=== PATIENT | male | born 1965 | race Caucasian/White ===

== ENCOUNTER 2021-08-23 10:22 | Emergency (ER) | payer BC, SELFPAY ==
[~2021-08-23] VITALS: Ht 182.9 cm; Wt 104.3 kg
[2021-08-23 10:32] VITALS: BP_SYST 145
[2021-08-23] MEDS ORDERED: ASPIRIN 81 MG TAB.CHEW PO ONE (12:00)
[2021-08-23 12:36] LABS: BARBITURATE, URINE NEGATIVE (NEG <=200); BENZODIAZEPINE, URINE NEGATIVE (NEG <=150); CANNABINOID, URINE NEGATIVE (NEG <=50); COCAINE, URINE NEGATIVE (NEG <=150); METHAMPHETAMINES SCREEN,URINE POSITIVE (NEG <=500); OPIATE, URINE NEGATIVE (NEG <=100); PHENCYCLIDINE SCREEN,URINE NEGATIVE (NEG <=25); URINE AMPHETAMINE POSITIVE (NEG <=500); URINE METHADONE NEGATIVE (NEG <=200); URINE OXYCODONE SCREEN NEGATIVE (NEG <=100)
[2021-08-23 12:37] LABS: UR TRICYCLIC ANTIDEPRESSANTS NEGATIVE (NEG <=300); URINE PROPOXYPHENE SCREEN NEGATIVE (NEG <=300)
[2021-08-23 12:43] LABS: BASOPHILS # (AUTO) 0.1 K/uL (0.0-0.2); BASOPHILS % (AUTO) 1.5 % (0.0-2.0); EOSINOPHILS # (AUTO) 0.1 K/uL (0.0-0.4); HEMOGLOBIN 13.3 g/dL (14.0-18.0); LYMPHOCYTES # (AUTO) 2.9 K/uL (1.0-5.5); LYMPHOCYTES % (AUTO) 42.9 % (20.5-51.5); MEAN CORPUSCULAR HEMOGLOBIN 31 pg (27-31); MEAN CORPUSCULAR HGB CONC 33 % (32-36); MEAN CORPUSCULAR VOLUME 93 fL (79.0-98.0); MONOCYTES # (AUTO) 0.6 K/uL (0.0-1.0); MONOCYTES % (AUTO) 9.1 % (1.7-9.3); NEUTROPHILS % (AUTO) 44.5 % (40.0-70.0); RED BLOOD CELL COUNT(AUTO) 4.32 MIL/uL (4.2-6.2); RED CELL DISTRIBUTION WIDTH 14.6 % (9.0-15.0)
[2021-08-23] MEDS ORDERED: NITROGLYCERIN 0.4 MG TAB.SUBL SL ONE (12:45)
[2021-08-23 12:47] LABS: WHITE BLOOD COUNT (AUTO) 6.8 K/uL (4.8-10.8)
[2021-08-23 13:05] LABS: ANION GAP 6 (5-15); CALCIUM 8.2 mg/dL (8.4-11.0); CHLORIDE 100 mmol/L (98-107); CREATININE 0.73 mg/dL (0.55-1.30); GLUCOSE 148 mg/dL (70-99); POTASSIUM 4.2 mmol/L (3.5-5.1); SODIUM SERUM 134 mmol/L (136-145); UREA NITROGEN, BLOOD 19 mg/dL (8-21)
[2021-08-23 13:06] LABS: GFR AFRICAN AMERICAN 143 mL/min (>90)
[2021-08-23 13:13] LABS: ALANINE AMINOTRANSFERASE 289 U/L (12-78); ALBUMIN 3.1 g/dL (3.4-4.8); ASPARTATE AMINOTRANSFERASE 190 U/L (10-37); TOTAL BILIRUBIN 0.5 mg/dL (0.0-1.0)
[2021-08-23 13:20] LABS: ALCOHOL, BLOOD < 3 mg/dL (<10)
[2021-08-23 13:21] LABS: PLATELET COUNT (AUTO) 95 K/uL (130-430)
[2021-08-23] MEDS ORDERED: NITROGLYCERIN 1 INCH (GM) OINT. TP ONE (14:00)
[2021-08-23] MEDS ORDERED: HYDROcodone/ACETAMIN 10-325 MG TAB PO ONE (15:00)
[2021-08-23] MEDS ORDERED: KETOROLAC TROMETHAMINE 60 MG/2 ML VIAL IM ONE (15:00)
[2021-08-23] MEDS ORDERED: HYDR-3917 PO (16:26)
[2021-08-23] MEDS ORDERED: IBUP-1971 PO (16:26)
[2021-08-23 16:57] VITALS: BP_SYST 128
--- NOTE | 2021-08-23 16:58 | NUR ---
Patient given written and verbal discharge instructions and verbalizes understanding. DAVID MATOS MD discussed with patient the results and treatment provided. Patient in stable condition. ID arm band removed. IV catheter removed intact and dressing applied, no active bleeding. Rx of HYDROCODONE, MOTRIN given. Patient educated on pain management and to follow up with PMD. Pain Scale 0. Opportunity for questions provided and answered. Medication side effect fact sheet provided.
== END 2021-08-23 16:58 | disposition home or self-care (01) ==
LOC: SED 10:22
DX: S13.4XXA Sprain of ligaments of cervical spine, initial encounter (principal); S43.401A Unspecified sprain of right shoulder joint, initial encounter; S09.8XXA Other specified injuries of head, initial encounter; W18.39XA Other fall on same level, initial encounter; Y93.89 Activity, other specified; Y92.89 Other specified places as the place of occurrence of the external cause; Y99.8 Other external cause status
CPT/HCPCS: 36415; 70450; 71045; 72072; 72125; 73560; 76376; 80053; 80307; 83880; 84484; 85025; 86886; 86900; 86901; 96372; 99285; G0482; J1885

== ENCOUNTER 2022-03-14 11:29 | Emergency (ER) | payer BC, MEDICAID ==
[~2022-03-14] VITALS: Ht 182.9 cm; Wt 102.1 kg
[~2022-03-14 11:29] MED LIST: HYDR-3917 PO; IBUP-1971 PO
[2022-03-14 11:30] VITALS: BP_SYST 124
--- NOTE | 2022-03-14 12:09 | NUR ---
Patient to ER bed 3 to gown for evaluation. Side rails up. Report given to SHAE HUERTA .
--- NOTE | 2022-03-14 12:10 | NUR ---
RECEIVED PT FROM DEANNA ANGELES. PT HAS C/O BODY ACHES, VSS. NORMOTHERMIC. PT IS AAOX4. RESP E/U. ON R/A. NO COUGH OR SOB NOTED. DENIES N/V/D/C. ABDOMEN SOFT, NONTENDER, NONDISTENDED. BOWEL SOUNDS ACTIVE. SKIN CDI, DISTAL PULSES NORMAL, NO EDEMA. IV CATH 20 TO RFA ESTABLISHED. SIDERAILS UP X2.
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
--- NOTE | 2022-03-14 12:15 | NUR ---
DAVID CARBAJAL at bedside examining patient.
[2022-03-14 13:44] LABS: EOSINOPHILS # (AUTO) 0.3 K/uL (0.0-0.4); WHITE BLOOD COUNT (AUTO) 3.8 K/uL (4.8-10.8)
[2022-03-14 13:55] LABS: BASOPHILS # (AUTO) 0.1 K/uL (0.0-0.2); BASOPHILS % (AUTO) 2.2 % (0.0-2.0); EOSINOPHILS % (AUTO) 7.3 % (0.0-4.0); HEMATOCRIT 34.8 % (36-54); HEMOGLOBIN 11.9 g/dL (14.0-18.0); LYMPHOCYTES # (AUTO) 1.8 K/uL (1.0-5.5); LYMPHOCYTES % (AUTO) 49.2 % (20.5-51.5); MEAN CORPUSCULAR HEMOGLOBIN 32 pg (27-31); MEAN CORPUSCULAR HGB CONC 34 % (32-36); MEAN CORPUSCULAR VOLUME 95 fL (79.0-98.0); MONOCYTES # (AUTO) 0.3 K/uL (0.0-1.0); MONOCYTES % (AUTO) 8.6 % (1.7-9.3); NEUTROPHILS # (AUTO) 1.2 K/uL (1.8-7.7); NEUTROPHILS % (AUTO) 32.7 % (40.0-70.0); PLATELET COUNT (AUTO) 104 K/uL (130-430); RED BLOOD CELL COUNT(AUTO) 3.67 MIL/uL (4.2-6.2); RED CELL DISTRIBUTION WIDTH 14.9 % (9.0-15.0)
[2022-03-14 14:07] LABS: BILIRUBIN,URINE NEGATIVE (NEGATIVE); CLARITY/URINE CLEAR (CLEAR); COLOR,URINE YELLOW (YELLOW); GLUCOSE,URINE NEGATIVE (NEGATIVE); KETONES,URINE NEGATIVE (NEGATIVE); LEUKOCYTE ESTERASE ,URINE NEGATIVE (NEGATIVE); NITRITE, URINE NEGATIVE (NEGATIVE); PROTEIN URINE NEGATIVE (NEGATIVE)
[2022-03-14 14:08] LABS: CALCIUM 8.1 mg/dL (8.4-11.0); CREATININE 0.9 mg/dL (0.55-1.30); POTASSIUM 3.9 mmol/L (3.5-5.1)
[2022-03-14 14:13] LABS: BLOOD, URINE TRACE (NEGATIVE)
[2022-03-14 14:14] LABS: ALBUMIN 2.8 g/dL (3.4-4.8); TOTAL BILIRUBIN 0.3 mg/dL (0.0-1.0)
--- NOTE | 2022-03-14 14:14 | NUR ---
PT TAKEN FOR CT SCAN.
[2022-03-14 14:21] LABS: BACTERIA,URINE RARE /HPF (None Seen); MUCUS,URINE 1+ /LPF (None Seen); RBC,URINE 0-3 /HPF (0-3); WBC,URINE 0-3 /HPF (0-3)
[2022-03-14 14:21] LABS: INR 1.2 (0.80-1.20); PROTHROMBIN TIME 12.1 SECS (9.5-12.5)
[2022-03-14] MEDS ORDERED: LIDOCAINE/EPI 2% 1:100000 20 ML VIAL INJ ONE (16:15)
--- NOTE | 2022-03-14 18:55 | NUR ---
Patient given written and verbal discharge instructions and verbalizes understanding. ER Dr. Jose THOMAS discussed with patient the results and treatment provided. Patient in stable condition. ID arm band removed. Patient educated on pain management and to follow up with PMD. Pain Scale 4/10. Opportunity for questions provided and answered. Medication side effect fact sheet provided.
[2022-03-14 19:30] VITALS: BP_SYST 124
--- NOTE | 2022-03-14 19:51 | NUR ---
TAMMY RN PT STABLE FOR D/C TO HOME. TO LOBBY VIA OWN W/C TO WAIT FOR [employer]. [id number] SAO2-99% R/A. IV D/C'D WITH CATH INTACT AND PRESSURE DRESSING APPLIED.
== END 2022-03-14 19:48 | disposition home or self-care (01) ==
LOC: SED 11:29
DX: R07.9 Chest pain, unspecified (principal); E11.9 Type 2 diabetes mellitus without complications; I10 Essential (primary) hypertension; Z88.8 Allergy status to other drugs, medicaments and biological substances; Z79.899 Other long term (current) drug therapy
CPT/HCPCS: 36415; 71045; 80053; 81000; 83605; 84484; 85025; 85610-TC; 85730-TC; 87040; 87086; 93005; 99285

== ENCOUNTER 2022-12-15 17:14 | Inpatient (IN) | payer MEDICAID ==
[~2022-12-15] VITALS: Ht 167.6 cm; Wt 77.1 kg
[2022-12-15 17:32] VITALS: BP_SYST 144
[2022-12-15] MEDS ORDERED: iohexoL 350 mgI/mL, 100 ML INFUS..BTL IV ONE (17:36)
[2022-12-15] MEDS ORDERED: ASPIRIN 81 MG TAB.CHEW PO ONE (18:00)
[2022-12-15 18:25] LABS: BASOPHILS # (AUTO) 0.1 K/uL (0.0-0.2); BASOPHILS % (AUTO) 2.2 % (0.0-2.0); EOSINOPHILS # (AUTO) 0.1 K/uL (0.0-0.4); EOSINOPHILS % (AUTO) 2.2 % (0.0-4.0); HEMATOCRIT 38.2 % (36-54); HEMOGLOBIN 13.1 g/dL (14.0-18.0); LYMPHOCYTES # (AUTO) 1.8 K/uL (1.0-5.5); LYMPHOCYTES % (AUTO) 29.5 % (20.5-51.5); MEAN CORPUSCULAR HEMOGLOBIN 32 pg (27-31); MEAN CORPUSCULAR HGB CONC 34 % (32-36); MEAN CORPUSCULAR VOLUME 95 fL (79.0-98.0); MONOCYTES # (AUTO) 0.6 K/uL (0.0-1.0); MONOCYTES % (AUTO) 9.9 % (1.7-9.3); NEUTROPHILS # (AUTO) 3.4 K/uL (1.8-7.7); NEUTROPHILS % (AUTO) 56.2 % (40.0-70.0); PLATELET COUNT (AUTO) 128 K/uL (130-430); RED BLOOD CELL COUNT(AUTO) 4.04 MIL/uL (4.2-6.2); RED CELL DISTRIBUTION WIDTH 14.5 % (9.0-15.0); WHITE BLOOD COUNT (AUTO) 6.1 K/uL (4.8-10.8)
[2022-12-15 18:41] LABS: ANION GAP 7 (5-15); CALCIUM 7.6 mg/dL (8.4-11.0); CHLORIDE 97 mmol/L (98-107); CREATININE 0.77 mg/dL (0.55-1.30); GFR AFRICAN AMERICAN 134 mL/min (>90); GLUCOSE 151 mg/dL (70-99); UREA NITROGEN, BLOOD 10 mg/dL (8-21)
[2022-12-15 18:54] LABS: ALANINE AMINOTRANSFERASE 195 U/L (12-78); ALBUMIN 2.8 g/dL (3.4-4.8); ASPARTATE AMINOTRANSFERASE 180 U/L (10-37); TOTAL BILIRUBIN 0.5 mg/dL (0.0-1.0)
[2022-12-15] MEDS ORDERED: ASPIRIN 325 MG TABLET PO ONE (20:30)
[2022-12-15] MEDS ORDERED: MAGNESIUM SULFATE 50 ML IV PRN (21:30)
[2022-12-15] MEDS ORDERED: DEXTROSE 50% JECT 50 ML DISP.SYRIN IVP PRN (21:30)
[2022-12-15] MEDS ORDERED: MORPHINE 2 MG/ML INJ. SYRINGE IVP PRN ×2 (21:30)
[2022-12-15] MEDS ORDERED: MUPIROCIN 2% TOPICAL OINTMENT 22 GM NS PRN (21:30)
[2022-12-15] MEDS ORDERED: IBUPROFEN 800 MG TABLET PO PRN (21:30)
[2022-12-15] MEDS ORDERED: ONDANSETRON HCL 4 MG/2 ML VIAL IVP PRN (21:30)
[2022-12-15] MEDS ORDERED: ZOLPIDEM TARTRATE 5 MG TABLET PO PRN (21:30)
[2022-12-15] MEDS ORDERED: POTASSIUM CHLORIDE 20 MEQ TAB.PRT.SR PO PRN (21:30)
[2022-12-15] MEDS ORDERED: DOCUSATE SODIUM 100 MG CAPSULE PO PRN (21:30)
[2022-12-15] MEDS ORDERED: ACETAMINOPHEN 325 MG TABLET PO PRN (21:30)
[2022-12-15] MEDS: LORazepam 2 MG/ML VIAL IVP PRN (21:57)
[2022-12-16] VITALS (8 sets, daily range): BP systolic 96–127
[2022-12-16 05:22] LABS: CALCIUM 7.6 mg/dL (8.4-11.0); CREATININE 0.83 mg/dL (0.55-1.30)
[2022-12-16 05:31] LABS: BASOPHILS # (AUTO) 0.1 K/uL (0.0-0.2); BASOPHILS % (AUTO) 1.3 % (0.0-2.0); EOSINOPHILS # (AUTO) 0.2 K/uL (0.0-0.4); EOSINOPHILS % (AUTO) 4.5 % (0.0-4.0); HEMATOCRIT 37.4 % (36-54); HEMOGLOBIN 12.7 g/dL (14.0-18.0); LYMPHOCYTES # (AUTO) 1.8 K/uL (1.0-5.5); LYMPHOCYTES % (AUTO) 35.6 % (20.5-51.5); MEAN CORPUSCULAR HEMOGLOBIN 32 pg (27-31); MEAN CORPUSCULAR HGB CONC 34 % (32-36); MEAN CORPUSCULAR VOLUME 94 fL (79.0-98.0); MONOCYTES # (AUTO) 0.6 K/uL (0.0-1.0); MONOCYTES % (AUTO) 11.7 % (1.7-9.3); NEUTROPHILS # (AUTO) 2.4 K/uL (1.8-7.7); NEUTROPHILS % (AUTO) 46.9 % (40.0-70.0); PLATELET COUNT (AUTO) 124 K/uL (130-430); RED BLOOD CELL COUNT(AUTO) 3.97 MIL/uL (4.2-6.2); RED CELL DISTRIBUTION WIDTH 14.5 % (9.0-15.0); WHITE BLOOD COUNT (AUTO) 5.1 K/uL (4.8-10.8)
[2022-12-16] MEDS ORDERED: NALOXONE HCL 0.4 MG/ML AMP (NARCAN) IVP PRN (08:00)
[2022-12-16] MEDS: ASPIRIN 81 MG TABLET(ECOTRIN) PO SCH (08:40)
[2022-12-16] MEDS: INSULIN LISPRO SLIDING SCALE 100 UNITS/ML, 3 ML VIAL (humaLOG) SUBCUT PRN ×2 (11:48→21:06)
[2022-12-16] MEDS: HYDROcodone/ACETAMIN 5-325 MG TAB (NORCO/ VICODIN) PO PRN ×2 (16:44→22:14)
[2022-12-17] MEDS: LORazepam 2 MG/ML VIAL IVP PRN (05:39)
[2022-12-17 06:13] LABS: OPIATE, URINE POSITIVE (NEG <=100)
[2022-12-17 06:14] LABS: BARBITURATE, URINE NEGATIVE (NEG <=200); BENZODIAZEPINE, URINE NEGATIVE (NEG <=150); CANNABINOID, URINE NEGATIVE (NEG <=50); COCAINE, URINE NEGATIVE (NEG <=150); METHAMPHETAMINES SCREEN,URINE NEGATIVE (NEG <=500); PHENCYCLIDINE SCREEN,URINE NEGATIVE (NEG <=25); UR TRICYCLIC ANTIDEPRESSANTS NEGATIVE (NEG <=300); URINE AMPHETAMINE NEGATIVE (NEG <=500); URINE METHADONE NEGATIVE (NEG <=200); URINE OXYCODONE SCREEN NEGATIVE (NEG <=100); URINE PROPOXYPHENE SCREEN NEGATIVE (NEG <=300)
[2022-12-17 06:54] LABS: BASOPHILS # (AUTO) 0.1 K/uL (0.0-0.2); BASOPHILS % (AUTO) 1.3 % (0.0-2.0); EOSINOPHILS # (AUTO) 0.2 K/uL (0.0-0.4); EOSINOPHILS % (AUTO) 4.6 % (0.0-4.0); HEMATOCRIT 39.4 % (36-54); HEMOGLOBIN 13.2 g/dL (14.0-18.0); LYMPHOCYTES # (AUTO) 1.8 K/uL (1.0-5.5); LYMPHOCYTES % (AUTO) 33.8 % (20.5-51.5); MEAN CORPUSCULAR HEMOGLOBIN 32 pg (27-31); MEAN CORPUSCULAR HGB CONC 34 % (32-36); MEAN CORPUSCULAR VOLUME 95 fL (79.0-98.0); MONOCYTES # (AUTO) 0.5 K/uL (0.0-1.0); MONOCYTES % (AUTO) 9.5 % (1.7-9.3); NEUTROPHILS # (AUTO) 2.7 K/uL (1.8-7.7); NEUTROPHILS % (AUTO) 50.8 % (40.0-70.0); PLATELET COUNT (AUTO) 121 K/uL (130-430); RED BLOOD CELL COUNT(AUTO) 4.13 MIL/uL (4.2-6.2); RED CELL DISTRIBUTION WIDTH 14.8 % (9.0-15.0); WHITE BLOOD COUNT (AUTO) 5.3 K/uL (4.8-10.8)
[2022-12-17 07:22] LABS: CALCIUM 7.9 mg/dL (8.4-11.0); CREATININE 0.71 mg/dL (0.55-1.30)
[2022-12-17 08:00] VITALS: BP_SYST 99
[2022-12-17] MEDS: ASPIRIN 81 MG TABLET(ECOTRIN) PO SCH (08:59)
[2022-12-17] MEDS ORDERED: NALOXONE HCL 0.4 MG/ML AMP (NARCAN) IVP PRN (10:45)
[2022-12-17] MEDS ORDERED: MORPHINE 2 MG/ML INJ. SYRINGE IVP ONE (10:45)
[2022-12-17] MEDS ORDERED: ASPI-1393 PO (11:21)
[2022-12-17] MEDS ORDERED: METF-380 PO (11:21)
[2022-12-17 12:41] VITALS: BP_SYST 99
[2022-12-17 13:16] VITALS: BP_SYST 121
== END 2022-12-17 14:01 | disposition home or self-care (01) | DRG 48 ==
LOC: SED 17:14 → STU 20:22 → SMU 12-16 12:35
PROVIDERS: ADMIT General Practice; ATTEND General Practice
DX: G90.9 Disorder of the autonomic nervous system, unspecified (principal); E44.0 Moderate protein-calorie malnutrition; I50.9 Heart failure, unspecified; G83.9 Paralytic syndrome, unspecified; I11.0 Hypertensive heart disease with heart failure; E87.1 Hypo-osmolality and hyponatremia; R53.2 Functional quadriplegia; Z68.27 Body mass index [BMI] 27.0-27.9, adult; E11.9 Type 2 diabetes mellitus without complications; F10.90 Alcohol use, unspecified, uncomplicated; Z72.0 Tobacco use; Z95.5 Presence of coronary angioplasty implant and graft; Z99.3 Dependence on wheelchair; Z88.8 Allergy status to other drugs, medicaments and biological substances
CPT/HCPCS: 36415; 70450-TC; 70496; 70498; 70551; 71045; 76376; 76700-TC; 80048; 80053; 80307; 83037; 83735; 83880; 84484; 85025; 93005; 96374; 96375; 99285; G0378; J2060; J2270; J2405; J3475; Q9967

== ENCOUNTER 2023-03-17 21:09 | Emergency (ER) | payer MEDICAID ==
[~2023-03-17] VITALS: Ht 170.2 cm; Wt 99.8 kg
[~2023-03-17 21:09] MED LIST changes: +ASPI-1393 PO; +METF-380 PO
[2023-03-17 21:14] VITALS: BP_SYST 140; PULSE 72; RESP 20; TEMP 99.3; O2SAT 97
[2023-03-17] MEDS ORDERED: ALBUTEROL SULFATE 0.083% 2.5 MG/3 ML VIAL.NEB INH ONE (23:15)
[2023-03-17] MEDS ORDERED: methylPREDNISolone SOD SUCC/PF 62.5 MG/ML VIAL IVP ONE (23:15)
[2023-03-17] MEDS ORDERED: AMPICILLIN SODIUM/SULBACTAM NA 1.5 GM in NS 50 ML IV ONE (23:30)
[2023-03-17] MEDS ORDERED: AMPICILLIN SODIUM/SULBACTAM NA 1.5 GM VIAL ONE (23:46)
[2023-03-17 23:55] LABS: BLOOD GAS PCO2 37.7 mmHg (32.0-45.0); BLOOD GAS PH 7.438 (7.350-7.450); BLOOD GAS PO2 65.1 mmHg (75.0-100.0)
[2023-03-17 23:56] LABS: ABG O2 SAT% ESTIMATE 93.5 % (94.0-100.0); ALLEN'S TEST Y (P); BLOOD GAS HCO3 24.9 mmol/L (21.0-27.0)
[2023-03-18 00:18] LABS: EOSINOPHILS # (AUTO) 0.2 K/uL (0.0-0.4); EOSINOPHILS % (AUTO) 5.7 % (0.0-4.0); HEMATOCRIT 33.7 % (36-54); HEMOGLOBIN 11.2 g/dL (14.0-18.0); LYMPHOCYTES # (AUTO) 1.4 K/uL (1.0-5.5); LYMPHOCYTES % (AUTO) 44.3 % (20.5-51.5); MEAN CORPUSCULAR HEMOGLOBIN 32 pg (27-31); MEAN CORPUSCULAR HGB CONC 33 % (32-36); MEAN CORPUSCULAR VOLUME 96 fL (79.0-98.0); MONOCYTES # (AUTO) 0.2 K/uL (0.0-1.0); MONOCYTES % (AUTO) 7.9 % (1.7-9.3); NEUTROPHILS # (AUTO) 1.3 K/uL (1.8-7.7); NEUTROPHILS % (AUTO) 41.1 % (40.0-70.0); PLATELET COUNT (AUTO) 81 K/uL (130-430); RED BLOOD CELL COUNT(AUTO) 3.52 MIL/uL (4.2-6.2); RED CELL DISTRIBUTION WIDTH 15.3 % (9.0-15.0); WHITE BLOOD COUNT (AUTO) 3.1 K/uL (4.8-10.8)
[2023-03-18 00:22] LABS: CALCIUM 7.7 mg/dL (8.4-11.0); CREATININE 0.69 mg/dL (0.55-1.30); POTASSIUM 3.3 mmol/L (3.5-5.1)
[2023-03-18 00:27] LABS: ALBUMIN 2.7 g/dL (3.4-4.8); TOTAL BILIRUBIN 0.5 mg/dL (0.0-1.0); TOTAL PROTEIN, SERUM 6.2 g/dL (6.4-8.3)
[2023-03-18] MEDS ORDERED: INSU100I26 SUBCUT (02:19)
[2023-03-18] MEDS ORDERED: ARIP10TA9 PO (02:19)
[2023-03-18] MEDS ORDERED: METF-379 PO (02:19)
[2023-03-18] MEDS ORDERED: HYDR-3927 PO (02:19)
[2023-03-18 03:03] VITALS: BP_SYST 121; PULSE 66; O2SAT 97
[2023-03-18 03:05] VITALS: BP_SYST 125; PULSE 69; RESP 16; TEMP 89.9; O2SAT 97
[2023-03-18] MEDS ORDERED: IPRATROPIUM/ALBUTEROL SULFATE 3 ML AMPUL.NEB (DUONEB) INH ONE ×2 (09:00)
== END 2023-03-18 02:55 | disposition admitted as inpatient to this hospital (09) ==
LOC: SED 21:09 → STU 03-18 02:22 → UNDOADMIN 03-18 02:22 → STU 03-18 02:55 → UNDODISIN 03-18 02:57
DX: Z76.5 Malingerer [conscious simulation] (principal); R06.02 Shortness of breath; E11.9 Type 2 diabetes mellitus without complications; I10 Essential (primary) hypertension; Z88.8 Allergy status to other drugs, medicaments and biological substances; Z79.899 Other long term (current) drug therapy
CPT/HCPCS: 80053; 82962; 83880; 85025; 87040; 36415; 71045; 94640; 36600; 82803; 99285; 96365; 96375; 83605; J0295; J2930; J7613

== ENCOUNTER 2023-08-13 08:32 | Emergency (ER) | payer MEDICAID ==
[~2023-08-13] VITALS: Ht 182.9 cm; Wt 99.8 kg
[~2023-08-13 08:32] MED LIST changes: +ARIP10TA9 PO; -ASPI-1393 PO; -HYDR-3917 PO; +HYDR-3927 PO; -IBUP-1971 PO; +INSU100I26 SUBCUT; +METF-379 PO; -METF-380 PO
[2023-08-13 08:35] VITALS: BP_SYST 116; PULSE 89; RESP 19; TEMP 98.2; O2SAT 98
[2023-08-13 09:34] LABS: HEMATOCRIT 40.5 % (36-54); HEMOGLOBIN 13.8 g/dL (14.0-18.0); MEAN CORPUSCULAR HEMOGLOBIN 33 pg (27-31); MEAN CORPUSCULAR HGB CONC 34 % (32-36); MEAN CORPUSCULAR VOLUME 96 fL (79.0-98.0); PLATELET COUNT (AUTO) 98 K/uL (130-430); RED BLOOD CELL COUNT(AUTO) 4.24 MIL/uL (4.2-6.2); RED CELL DISTRIBUTION WIDTH 15.3 % (9.0-15.0); WHITE BLOOD COUNT (AUTO) 3.4 K/uL (4.8-10.8)
[2023-08-13 09:36] LABS: ANION GAP 6 (5-15); CALCIUM 8.3 mg/dL (8.4-11.0); CARBON DIOXIDE 28 mmol/L (23-29); CHLORIDE 103 mmol/L (98-107); CREATININE 0.76 mg/dL (0.55-1.30); GFR AFRICAN AMERICAN 136 mL/min (>90); GLUCOSE 282 mg/dL (74-106); POTASSIUM 4.1 mmol/L (3.5-5.1); SODIUM SERUM 137 mmol/L (136-145); UREA NITROGEN, BLOOD 12 mg/dL (8-21)
[2023-08-13 09:39] LABS: GFR NON AFRICAN-AMERICAN 112 mL/min (>90)
[2023-08-13 09:47] LABS: ALANINE AMINOTRANSFERASE 195 U/L (12-78); ASPARTATE AMINOTRANSFERASE 155 U/L (10-37); LIPASE 47 U/L (16-77); TOTAL BILIRUBIN 1.1 mg/dL (0.0-1.0); TOTAL PROTEIN, SERUM 7.6 g/dL (6.4-8.3)
[2023-08-13] MEDS ORDERED: HYDROcodone/ACETAMIN 5-325 MG TAB (NORCO/ VICODIN) PO ONE (10:00)
[2023-08-13] MEDS ORDERED: INSULIN NPH/REGULAR 70-30, 100 UNITS/ML, 3 ML VIAL SUBCUT ONE (10:15)
[2023-08-13 10:39] LABS: INFLUENZA TYPE A Negative (NEGATIVE); INFLUENZA TYPE B NEGATIVE (NEGATIVE)
[2023-08-13 10:42] LABS: BAND % (MANUAL) 3 % (0-6); BASOPHILS % (MANUAL) 0 % (0-2); EOSINOPHILS % (MANUAL) 0 % (0-7); LYMPHOCYTES % (MANUAL) 42 % (20-46); MONOCYTES % (MANUAL) 7 % (0-11); PLATELET ESTIMATE DECREASED (ADEQUATE)
[2023-08-13] MEDS ORDERED: METF-864 PO (11:32)
[2023-08-13] MEDS ORDERED: HYDR-3917 PO (11:32)
[2023-08-13] MEDS ORDERED: ARIP10TA9 PO (11:32)
[2023-08-13] MEDS ORDERED: ONDA-8 TL (11:33)
[2023-08-13] MEDS ORDERED: ONDANSETRON 4 MG ODT TAB PO ONE (11:45)
[2023-08-13 12:10] LABS: BARBITURATE, URINE POSITIVE (NEG <=200); BENZODIAZEPINE, URINE NEGATIVE (NEG <=150); CANNABINOID, URINE NEGATIVE (NEG <=50); COCAINE, URINE NEGATIVE (NEG <=150); METHAMPHETAMINES SCREEN,URINE NEGATIVE (NEG <=500); OPIATE, URINE NEGATIVE (NEG <=100); PHENCYCLIDINE SCREEN,URINE NEGATIVE (NEG <=25); UR TRICYCLIC ANTIDEPRESSANTS NEGATIVE (NEG <=300); URINE AMPHETAMINE NEGATIVE (NEG <=500); URINE METHADONE NEGATIVE (NEG <=200); URINE OXYCODONE SCREEN NEGATIVE (NEG <=100)
[2023-08-13 12:20] VITALS: BP_SYST 129; PULSE 61; RESP 16; TEMP 98.2; O2SAT 97
== END 2023-08-13 12:20 | disposition home or self-care (01) ==
LOC: SED 08:32
DX: M79.641 Pain in right hand (principal); R07.89 Other chest pain; D72.819 Decreased white blood cell count, unspecified; K74.69 Other cirrhosis of liver; R74.01 Elevation of levels of liver transaminase levels; F17.200 Nicotine dependence, unspecified, uncomplicated; F12.90 Cannabis use, unspecified, uncomplicated; J44.9 Chronic obstructive pulmonary disease, unspecified; E11.9 Type 2 diabetes mellitus without complications; I10 Essential (primary) hypertension; Z81.1 Family history of alcohol abuse and dependence; Z88.8 Allergy status to other drugs, medicaments and biological substances; Z79.899 Other long term (current) drug therapy; Z20.822 Contact with and (suspected) exposure to COVID-19
CPT/HCPCS: 99285; 71045; 87426; 85027; 80307; 80053; 83880; 83690; 85007; 84484; 36415; 93005; 73100; 96372; 87804 ×2; Q0162; J1815

== ENCOUNTER 2023-08-27 11:26 | Emergency (ER) | payer MEDICAID ==
[~2023-08-27] VITALS: Ht 182.9 cm; Wt 99.8 kg
[~2023-08-27 11:26] MED LIST changes: +HYDR-3917 PO; +METF-864 PO; +ONDA-8 TL
[2023-08-27 11:27] VITALS: BP_SYST 139; PULSE 90; RESP 20; TEMP 98.6; O2SAT 96
[2023-08-27 12:35] VITALS: BP_SYST 139; PULSE 90; RESP 20; TEMP 98.6; O2SAT 96
== END 2023-08-27 12:33 | disposition left against medical advice (07) ==
LOC: SED 11:26
DX: R06.02 Shortness of breath (principal); Z53.21 Procedure and treatment not carried out due to patient leaving prior to being seen by health care provider
CPT/HCPCS: 99281

== ENCOUNTER 2023-09-28 22:12 | Emergency (ER) | payer MEDICAID ==
[~2023-09-28] VITALS: Ht 182.9 cm; Wt 99.8 kg
[2023-09-28 22:29] VITALS: BP_SYST 130; PULSE 88; RESP 16; TEMP 98.8; O2SAT 98
[2023-09-28] MEDS: KETOROLAC TROMETHAMINE 30 MG VIAL IM ONE (23:19)
[2023-09-29] MEDS ORDERED: oxyCODONE HCL 5 MG TABLET ONE (00:58)
[2023-09-29 01:00] VITALS: BP_SYST 110; PULSE 67; RESP 16; TEMP 98; O2SAT 99
[2023-09-29] MEDS: oxyCODONE HCL 5 MG TABLET PO ONE (01:00)
[2023-09-29] MEDS ORDERED: LIDO1ADH71 TD (01:08)
== END 2023-09-29 03:00 | disposition home or self-care (01) ==
LOC: SED 22:12
DX: S16.1XXA Strain of muscle, fascia and tendon at neck level, initial encounter (principal); S46.811A Strain of other muscles, fascia and tendons at shoulder and upper arm level, right arm, initial encounter; S46.812A Strain of other muscles, fascia and tendons at shoulder and upper arm level, left arm, initial encounter; J44.9 Chronic obstructive pulmonary disease, unspecified; E11.9 Type 2 diabetes mellitus without complications; I10 Essential (primary) hypertension; Z88.8 Allergy status to other drugs, medicaments and biological substances; Z79.4 Long term (current) use of insulin; Z79.899 Other long term (current) drug therapy; X58.XXXA Exposure to other specified factors, initial encounter; Y93.89 Activity, other specified; Y92.89 Other specified places as the place of occurrence of the external cause; Y99.8 Other external cause status
CPT/HCPCS: 99285; 72125; 73030; 96372; J1885